=== PATIENT | female | born 1945 | race Caucasian/White ===

== ENCOUNTER → 2017-10-28 | Outpatient (CLI) | payer OTHER | LOC: BRMIMAGING 14:15 | PROVIDERS: ATTEND Internal Medicine | DX: M17.4 Other bilateral secondary osteoarthritis of knee (principal); M19.011 Primary osteoarthritis, right shoulder; M19.012 Primary osteoarthritis, left shoulder; M19.041 Primary osteoarthritis, right hand; M19.021 Primary osteoarthritis, right elbow; M19.022 Primary osteoarthritis, left elbow; M51.36 Other intervertebral disc degeneration, lumbar region | CPT/HCPCS: 72100-PO; 73030-PO; 73080-PO; 73130-PO; 73562-PO ==